=== PATIENT | male | born 1985 | race Caucasian/White ===

== ENCOUNTER 2022-10-11 09:21 | Emergency (ER) | payer OTHER, SELFPAY ==
--- NOTE | ~2022-10-11 | XR_ITS ---
EXAMINATION: XR ANKLE, RIGHT CLINICAL INFORMATION: Work injury, pain. COMPARISON: None TECHNIQUE: AP, lateral, and mortise views of the right ankle. FINDINGS: Mild soft tissue swelling is seen laterally. The ankle joint and mortise are intact. There is no acute fracture or dislocation. The joint spaces are unremarkable. The tarsal bones are normally aligned. XR/XR ankle RT 2V IMPRESSION: Mild soft tissue swelling laterally without acute underlying osseous abnormality.
[2022-10-11 09:38] VITALS: BP 132/77; PULSE 72; O2SAT 96
--- NOTE | 2022-10-11 10:00 | ED.LOWEXIN ---
HPI - Extremity Injury (Lower) General Chief Complaint: Extremity Injury, Lower Stated Complaint: R ANKLE PAIN S/P MISSTEP FELT POP @ WORK PER EMS Time Seen by Provider: 10/11/22 09:35 Source: patient and EMS Mode of arrival: EMS Limitations: no limitations History of Present Illness HPI Narrative: 37-year-old male healthy presents with right ankle pain after an injury which occurred while working. 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 Patient heard subsequent pop. Now pain with weight bearing. No previous ankle injuries. No reports of weakness, numbness or tingling of the extremity. MD complaint: ankle injury Related Data Allergies Allergy/AdvReac Type Severity Reaction Status Date / Time No Known Allergies Allergy Verified 10/11/22 09:59 Review of Systems Review of Systems: Yes all other systems are reviewed and are negative Constitutional: Constitutional: Reports no additional constitutional complaints, Denies body ache(s), Denies chills, Denies fever(s), Denies headache(s) and Denies weakness Eyes: Eyes: Reports no additional eye complaints and Denies change in vision ENT: Reports system reviewed and no additional complaints, except as documented, Denies dizziness, Denies headache(s), Denies nasal congestion, Denies nasal discharge and Denies neck pain Cardiovascular: Cardiovascular: Reports no additional cardiovascular complaints, Denies chest pain, Denies leg edema and Denies dyspnea Respiratory: Respiratory: Reports no additional respiratory complaints, Denies cough and Denies dyspnea Gastrointestinal: Gastrointestinal: Reports no additional gastrointestinal complaints, Denies abdominal pain, Denies diarrhea, Denies nausea and Denies vomiting Genitourinary: Genitourinary: Denies urinary incontinence Musculoskeletal: Musculoskeletal: Reports no additional musculoskeletal complaints, Denies back pain, Reports arthralgias, Denies joint swelling, Denies neck pain, Denies numbness and Denies tingling Integumentary/Breasts: Skin/Breast: Reports system reviewed and no additional complaints, except as docu and Denies rash Neurologic: Reports system reviewed and no additional complaints, except as documented, Denies Abnormal speech present, Denies dizziness, Denies headache(s), Denies numbness, Denies tingling and Denies weakness [facility] Past Medical History Attestation statement: The following information was validated with the patient. Source: old records reviewed and nursing notes reviewed Social History Social History Advance Directives: No Physical Exam Vital Signs: Vital Signs: Last Vital Signs Temp 98 F 10/11/22 10:24 Pulse 58 10/11/22 10:24 Resp 18 10/11/22 10:24 BP 145/83 H 10/11/22 10:24 Pulse Ox 98 10/11/22 10:24 O2 Del Method 10/11/22 10:24 BMI result Body Mass Index 33.4 Const: General: cooperative, healthy appearing, comfortable and no acute distress Orientation/consciousness: patient oriented x3 Limitations: no limitations HEENT: Head: Yes normal to inspection Ears: hearing grossly normal bilaterally General nose exam: Normal external nose present Face and sinus: Yes normal facial exam Mouth: Normal oral and palatal mucosa present Throat: Yes posterior oropharynx normal Eyes: General: appearance normal, both eyes and all related structures Pupils: Equal, round and reactive pupils present Neck: Neck: Yes normal visual inspection Chest: Chest palpation & inspection: normal inspection of the chest Resp: Effort & Inspection: normal respiratory effort Auscultation: clear to auscultation bilaterally Cardio: Rate: regular rate Rhythm: regular rhythm Peripheral pulses: Peripheral pulses 2+ throughout GI: Inspection: Yes normal to inspection Palpation (GI): Soft to palpation and nontender Auscultation: normal bowel sounds Back/Spine/Pelvis: Thoracic/Lumbar Spine: thoracic and lumbar spine normal to inspection Skin: General skin exam: no rashes or lesions noted Neuro: General: patient oriented x3, no focal motor deficits and normal sensation to monofilament Cranial nerves: Yes Equal, round and reactive pupils present Cognition (Neuro): normal cognition Speech: No Abnormal speech present Gait exam (Neuro): Normal gait present Motor exam (neuro): 5/5 motor strength present throughout Extrem: Other: There is mild tenderness on palpation over the right lateral ankle. There is no tenderness over the medial aspect or posterior aspect. There is no tenderness over the foot. There is no tenderness over the calf. There is full range of motion of the ankle and the foot. No ligamental laxity noted. Normal dorsalis pedis and posterior tibial pulses negative Horne test Normal cap refill sensation normal General: Yes normal to inspection Course Course Course Narrative: x-ray show no acute fracture. Likely sprain. Patient placed in air splint and given crutches for home. Recommend rice, follow-up with were connection due to work related injury. Reviewed worrisome signs and symptoms of when to return to the emergency room. Comfortable plan for discharge home. Medical Decision Making Medical Decision Making MDM Narrative: 37-year-old male here with right ankle pain after an inversion injury which occurred just prior to arrival while working exam patient with tenderness over the right lateral ankle with full range of motion. No foot tenderness, calf tenderness. No ligamental laxity. Negative Horne test. doubt fracture. Will obtain x-ray Differential Diagnosis Differential Diagnoses: The differential diagnosis associated with the presentation includes fracture, sprain less likely Achilles tendon rupture, foot fracture Independent Interpretation I performed an independent interpretation of an: Plain X-Ray Interpretation: independently reviewed the x-ray and there is no acute fracture in the right ankle Radiology Impression Discussion of test interpretation with radiology: I have reviewed the radiologist's reading. Radiologist Impression: one? TECHNIQUE: AP, lateral, and mortise views of the right ankle. FINDINGS: Mild soft tissue swelling is seen laterally. The ankle joint and mortise are intact. There is no acute fracture or dislocation. The joint spaces are unremarkable. The tarsal bones are normally aligned. XR/XR ankle RT 2V IMPRESSION: Mild soft tissue swelling laterally without acute underlying osseous abnormality. Discharge Plan Discharge Clinical Impression: Ankle sprain Patient Disposition: Home, Self-Care Instructions: Ankle Sprain (ED) Additional Instructions: the x-rays of her ankle show no fracture. You have a sprain. Use the Aircast and crutches for the next few days until your able to bear weight without experiencing pain. Gentle stretching. Rest, ice, elevation Motrin or Tylenol for pain as needed follow-up with work connection at [phone] Stand Alone Forms: Work/School Release Interventions: ED Discharge Assessment Last Done: 10/11/22 10:43 Discharge Date/Time: 10/11/22 10:54
[2022-10-11 10:24] VITALS: BP 145/83; PULSE 58; RESP 18; TEMP 36.6; O2SAT 98; BMI 33.4
== END 2022-10-11 10:54 | disposition home or self-care (01) ==
PROVIDERS: Emergency Provider Emergency Medicine
DX: S93.401A Sprain of unspecified ligament of right ankle, initial encounter (principal); W01.0XXA Fall on same level from slipping, tripping and stumbling without subsequent striking against object, initial encounter; Y93.9 Activity, unspecified; Y92.812 Truck as the place of occurrence of the external cause; Y99.0 Civilian activity done for income or pay
CPT/HCPCS: 73600; 99283

== ENCOUNTER → 2022-10-20 08:19 | Outpatient (BNVA) | payer OTHER, SELFPAY | PROVIDERS: Visit Provider Internal Medicine | DX: S93.401A Sprain of unspecified ligament of right ankle, initial encounter (principal); W01.198A Fall on same level from slipping, tripping and stumbling with subsequent striking against other object, initial encounter | CPT/HCPCS: 99202 ==